=== PATIENT | female | born 1955 | race Caucasian/White ===

== ENCOUNTER → 2018-05-21 | Outpatient (CLI) | payer MEDICARE, BC ==
--- NOTE | 2018-05-21 14:22 | SFUN ---
SLEEP CENTER FOLLOW UP NOTE DATE OF SERVICE: 05/21/2017 A 63-year-old lady who has been followed in the Sleep Center for treatment of obstructive sleep apnea-hypopnea syndrome and narcolepsy. Patient successfully continued to use her BiPAP equipment every night for the whole night. BiPAP pressure is 11/7 cm of water. No snoring with the machine. Patient takes 300 mg of Provigil in the morning, but still has episodes of sleepiness during the day. Has to drink additionally some caffeinated beverages to reduce sleepiness before driving. [place] Sleepiness Scale today is 15. MEDICATIONS: Acyclovir, aspirin, , Centrum, Creon, Lomotil, Lopressor, , Myrbetriq, probiotic, Prilosec, Procardia XL, Prolia, Singulair, Topamax. PHYSICAL EXAM: Patient in no distress, BP 116/77, HR 50, RR 16, height 63, weight 154.6, which is the same as during the previous visit. Body mass index 27.2, temperature 98.6, oxygen saturation at room air 98%. OROPHARYNX: Mallampati 3. Neck Supple, no JVD. Thyroid is not palpable. LUNGS Clear to percussion and to auscultation. Good air exchange. No wheezing or rhonchi. HEART S1, S2 regular. No murmurs, gallops, or rubs. ABDOMEN Soft and nontender. Bowel sounds are present. No organomegaly appreciated. EXTREMITIES No clubbing or cyanosis. SUSTAINMENT LOGISTICS ANALYST Awake, alert, and oriented X3. Cranial nerves 2 to 7 intact. There is no fasciculation or atrophy. noted. No focal deficits observed. IMPRESSION: 1. Obstructive sleep apnea-hypopnea syndrome. Patient continued to use her BiPAP equipment benefitting from treatment. 2. Narcolepsy. 3. History of migraines. 4. History of supraventricular tachycardia. 5. History of psoriasis and psoriatic arthritis. 6. Asthma. 7. History of trochanteric bursitis. 8. Status post left hip total replacement. 9. History of peripheral neuropathy. 10.Status post surgical treatment of carpal tunnel syndrome. 11.Status post cervical fusion and diskectomy at the level of C5-C6. 12.Status post hemorrhoidectomy. 13.Status post adenoidectomy and septoplasty. 14.Status post tonsillectomy and myringotomy. 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 PLAN: 1. Patient will continue to use Provigil every morning. We will increase dose to 400 mg. 2. Patient will continue to use BiPAP equipment every night for the whole night. Will maintain all necessary BiPAP prescription. 3. Precautions related to driving. No driving if feeling sleepiness. 4. Daytime naps permitted. 5. Followup visit in 3 months to evaluate the clinical response of treatment with increased dose of Provigil and to check BiPAP unit. Thank you very much for allowing me to participate in the management of your patient. Sincerely, Aneesh Artis MD, PhD, FAASM Diplomat of [employer] Lay Out Inspector of [facility] [place] MMODL / IJN: [id number] /
== END | disposition home or self-care (01) ==
LOC: SLEEP 13:26
PROVIDERS: ATTEND Internal Medicine
DX: G47.33 Obstructive sleep apnea (adult) (pediatric) (principal); G47.419 Narcolepsy without cataplexy; G43.909 Migraine, unspecified, not intractable, without status migrainosus; I47.1 Supraventricular tachycardia; J45.909 Unspecified asthma, uncomplicated; L40.9 Psoriasis, unspecified; L40.50 Arthropathic psoriasis, unspecified; G62.9 Polyneuropathy, unspecified; Z96.642 Presence of left artificial hip joint; Z98.890 Other specified postprocedural states; Z98.1 Arthrodesis status; Z96.22 Myringotomy tube(s) status; Z99.89 Dependence on other enabling machines and devices; Z79.899 Other long term (current) drug therapy; Z79.82 Long term (current) use of aspirin

== ENCOUNTER → 2018-08-14 | Outpatient (CLI) | payer MEDICARE, BC ==
--- NOTE | 2018-08-14 12:27 | SFUN ---
SLEEP CENTER FOLLOW UP NOTE DATE OF SERVICE: 08/14/2018 This 63-year-old lady has been followed in sleep center for treatment of obstructive sleep apnea-hypopnea syndrome and possible narcolepsy. Patient continued to use his CPAP equipment every night for the whole night and sleep well with that. There is no snoring. She is on treatment with modafinil in the morning, 400 mg. With this regimen, her daytime alertness, mostly on control. Sometimes in the evening hours, she may feel sleepy while she is in the . Otherwise, no problems. I checked her BiPAP unit. Pressure is 11/7 cm of water. Usage is every night for more than 4 hours. Average usage 8.0 hours. Leak 5 L/minute which is normal range. Apnea- hypopnea index only 1.8, which is absolutely normal. [place] Sleepiness Scale today is 13. MEDICATIONS: Acyclovir, aspirin, Centrum, Lomotil, Lopressor, , Prilosec, Procardia XL, Prolia, Singulair, Topamax, and Provigil. PHYSICAL EXAMINATION: During physical exam, patient in no distress. VITAL SIGNS: BP 98/64, HR 62, RR 14, height 5 feet 3 inches, weight 157.4, body mass index 27.8, temperature 99.8, oxygen saturation at room air 95%. HEENT: PERRLA, EOMI. Oropharynx low position of soft palate. Mallampati 3. NECK: Supple, no JVD. Thyroid is not palpable. LUNGS: Clear to percussion and to auscultation. Good air exchange. No wheezing or rhonchi. HEART: S1, S2 regular. No murmurs, gallops, or rubs. ABDOMEN: Soft and nontender. Bowel sounds are present. No organomegaly appreciated. EXTREMITIES: No clubbing or cyanosis. PEARL GLUE DRIER: Awake, alert, and oriented X3. Cranial nerves 2 to 7 intact. There is no fasciculation or atrophy. noted. No focal deficits observed. IMPRESSION: 1. Obstructive sleep apnea-hypopnea syndrome. Patient demonstrated 100% compliance with treatment benefitting from treatment. 2. Narcolepsy. 3. History of migraines. 4. History of supraventricular tachycardia. 5. History of psoriasis and psoriatic arthritis. 6. Asthma. 7. History of trochanteric bursitis. 8. Status post left hip total replacement. 9. History of peripheral neuropathy. 10.Status post surgical treatment of carpal tunnel syndrome. 11.Status post cervical fusion and diskectomy at the level of C5-C6. 12.Status post hemorrhoidectomy. 13.Status post adenoidectomy and septoplasty. 14.Status post tonsillectomy and myringotomy. 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 PLAN: 1. The patient will continue to use BiPAP equipment every night for the whole night with the same regimen. 2. Prescription for all necessary BiPAP supplies including mask, tube, filters. 3. Patient will continue to take Provigil 400 mg in the morning. 4. Daytime naps permitted. 5. Precautions related to driving. No driving if feeling any sleepiness. Thank you very much for allowing me to participate in management of your patient. Sincerely, Aneesh Artis MD, PhD, FAASM Diplomat of [employer] Leg Man of [facility] [place] MMODL / IJN: [id number] /
== END | disposition home or self-care (01) ==
LOC: SLEEP 11:00
PROVIDERS: ATTEND Internal Medicine
DX: G47.33 Obstructive sleep apnea (adult) (pediatric) (principal); G47.419 Narcolepsy without cataplexy; J45.909 Unspecified asthma, uncomplicated; Z86.79 Personal history of other diseases of the circulatory system; Z86.69 Personal history of other diseases of the nervous system and sense organs; Z87.2 Personal history of diseases of the skin and subcutaneous tissue; Z87.39 Personal history of other diseases of the musculoskeletal system and connective tissue; Z87.19 Personal history of other diseases of the digestive system; Z99.89 Dependence on other enabling machines and devices; Z96.642 Presence of left artificial hip joint; Z98.1 Arthrodesis status; Z90.09 Acquired absence of other part of head and neck; Z98.890 Other specified postprocedural states; Z79.899 Other long term (current) drug therapy

== ENCOUNTER 2019-02-10 06:11 | Day surgery (SDC) | payer MEDICARE, BC ==
[2019-02-05 13:21] VITALS: BMI 26.5
[~2019-02-10 06:11] MED LIST: SODIUM CHLORIDE 0.9% 1,000 ML IV SCH
[2019-02-10 06:46] VITALS: RESP 16
[2019-02-10] MEDS ORDERED: SODIUM CHLORIDE 0.9% 1,000 ML IV ONE ×2 (06:48→10:19)
[2019-02-10] MEDS ORDERED: SUCCINYLCHOLINE CHLORIDE 100 MG/5 ML SYR IV ONE (07:23)
[2019-02-10] MEDS ORDERED: fentaNYL (PF) 50 MCG/ML 2 ML AMP ONE (07:23)
[2019-02-10] MEDS ORDERED: MIDAZOLAM 2 MG/2 ML VIAL ONE (07:23)
[2019-02-10] MEDS ORDERED: PROPOFOL 10 MG/ML 20 ML VIAL IV ONE (07:23)
[2019-02-10] MEDS ORDERED: ONDANSETRON 4 MG/2 ML VIAL ONE (07:23)
[2019-02-10] MEDS ORDERED: ISOPROTERENOL 250 MCG/1.25 ML SYR IV ONE (07:23)
[2019-02-10] MEDS ORDERED: LIDOCAINE 1% INJ 10MG/ML (20 ML MDV) SQ ONE (08:00)
[2019-02-10] MEDS ORDERED: HYDROcodone/APAP 5-325MG 1 EACH TAB PO PRN (10:12)
[2019-02-10] MEDS ORDERED: ACETAMINOPHEN TAB 325 MG TAB PO PRN (10:12)
[2019-02-10] MEDS ORDERED: ACETAMINOPHEN IV (For NPO) 1,000 MG in EMPTY BAG 1 BAG IVPB ONE (10:12)
[2019-02-10] MEDS ORDERED: PREDNISOLONE ACETATE BOTH EYES SCH (10:15)
--- NOTE | 2019-02-10 10:33 | P.PRLE ---
RE: Lilly Blandon Dear Lamont Carr underwent a diagnostic EP study which revealed an atrial tachycardia. This was inconsistently induced on high-dose Isuprel and would spontaneously ter minate. I would treat her medically at this point with low-dose flecainide and once she starts experiencing breakthrough episodes on flecainide and metoprolol him a the episodes would definitely be longer and more amenable to mapping. I will start him on flecainide 50 g twice daily and she will continue metoprolol succinate 25 mg by mouth daily Thank you for entrusting me with the care of the patient Warm regards Sincerely Jonathon Lynn
[2019-02-10 10:55] VITALS: TEMP 96.8
--- NOTE | 2019-02-10 11:16 | CE ---
CARDIAC ELECTROPHYSIOLOGY REPORT Lilly Blandon is a 63-year-old female who has recurrent palpitations despite metoprolol 25 mg p.o. daily. She was brought in for diagnostic EP study and possible radiofrequency ablation. Patient is brought to the EP lab in a fasting state and written informed consent was obtained prior to the procedure. The right groin was prepped and draped as per protocol. Three venous sheaths were placed in the right femoral vein. Via these, three diagnostic catheters were positioned in the right heart (high right atrial catheter, His bundle catheter, RV catheter). The baseline measurements are as follows: Sinus cycle length 1138 milliseconds, AK interval 178 milliseconds, QRS 95 milliseconds and QT 435 milliseconds. Baseline AH interval 58 milliseconds, baseline HV interval 50 milliseconds. Sinus node recovery times at 600, 500 and 400 milliseconds were 1450, 1284, and 1156 milliseconds. The corresponding corrected sinus node recovery times were mildly prolonged at a paced cycle length of 600 milliseconds, more than 500. AV node Wenckebach block in the baseline state is 440 milliseconds, VA Wenckebach block was 360 milliseconds. Atrial extra stimulation was performed and echo beats were consistently noted from 600/380 milliseconds down to 600/340 milliseconds and AV node ERP was achieved. Ventricular extra stimulation was performed and once again a retrograde jump in the AH interval was noted at 600/360 milliseconds. Ventricular ERP was noted at 600/280 milliseconds. In the baseline state, no sustained arrhythmia was induced. Only single echo beats and one double echo beat was noted. Isuprel was then started wide open and then at 2 mcg. Atrial tachycardia was induced with straight pacing at a paced cycle length of 310 milliseconds. The atrial tachycardia cycle length was 361 milliseconds. The earliest activation was noted in the high right atrium, which is slightly earlier than the proximal His. The HRA pole was in the lower half of the right atrium. The tachycardia terminated abruptly with coronary sinus massage ending with the ventricular signal. Later, the tachycardia terminated spontaneously on two occasions with the last electrogram with a ventricular signal. Pacing leads in the atrial tachycardia. The tachycardia was inconsistently inducible with burst stimulation at a pacing from the high right atrium at a paced cycle length of around 350 milliseconds. At this point, the patient was quite restless on the table and would repeatedly move her legs and try to get off the table therefore, we made a decision to perform the rest of the diagnostic EP study and possible mapping and ablation under general anesthesia. After intubation, straight pacing was performed in the high right atrium and atrial fibrillation (rapid atrial tachycardia at a cycle length of 215 to 15 milliseconds was induced.) She had to be electrically cardioverted to sinus rhythm. Following that, high-dose Isuprel was used and atrial tachycardia was very inconsistently induced occasionally with burst stimulation from the high right atrium. The tachycardia cycle length once again was 360 milliseconds. Given the difficulty in inducing the tachycardia consistently and the fact that the tachycardia would not be long-lasting and would terminate spontaneously, ending in a ventricular signal, we made a decision to treat her medically at this point and bring her back for an EP study and mapping ablation only when she became refractory to flecainide. Hopefully at that time, her tachycardia would be more sustained at that time and more amenable to mapping. This is a focal atrial tachycardia, most likely in the right atrium. RESULT: 1. Diagnostic EP study revealed normal baseline measurements, normal AH and HV intervals. Very mildly prolonged sinus node recovery times at a paced cycle length of 600 milliseconds. 2. No evidence for delta waves but evidence of echo beats. Up to triple echo beats were noted on the high-dose Isuprel, but no further sustained AVNRT. 3. The clinical tachycardia appears to be right atrial tachycardia, likely focal in nature given the fact that it abruptly terminated with carotid sinus massage. This was a long RP tachycardia with the VA time of almost 180 milliseconds. This tachycardia is inconsistently induced on Isuprel only with straight pacing and burst stimulation around a pacing cycle length of between 300-350 milliseconds. 4. With shorter cycle lengths, organized atrial fibrillation was induced. PLAN: Medical treatment with flecainide and mapping ablation to be performed once she starts having breakthrough episodes on flecainide. MMODL / IJN: [id number] /
--- NOTE | 2019-02-10 11:30 | P.HPCAR ---
History of Present Illness This is Dr. Lynn dictating an H&P on this patient The patient was interviewed and examined by me IMPRESSION / ASSESSMENT: Recurrent palpitations despite metoprolol associated with dizziness and lightheadedness but no syncope Normal stress test Preserved LV systolic function ejection fraction 60% Obstructive sleep apnea using a BiPAP mask No contraindications to proceeding with EP study and ablation under conscious sedation or general anesthesia PLAN: Proceed with EP study and possible ablation based upon the results of EP study HPI Patient has had recurrent palpitations and is experiencing breakthrough episodes on metoprolol. Were associated with dizziness but no loss of consciousness She also complaining of shortness of breath on exertion No chest discomfort no loss of consciousness recently No fever chills or rigors no cough or expectoration orthopnea PND recently ROS: No fever chills or rigors, no cough, phlegm or expectoration, no nausea, vomiting or diarrhea, no hematuria, dysuria, no musculoskeletal complaints, no strokes or seizures, no skin lesions. EXAMINATION: Afebrile 96.8F, pulse rate in the 60s and 70s, normal respirations, blood pressure 124/78 mmHg Breath sounds are clear no rhonchi no crackles Normal heart sounds no murmurs or gallops or rub Soft abdomen, nontender no masses Extremities are normal no edema REVIEW OF LABS, ECG & MEDICAL DATA History of narcolepsy, obstructive sleep apnea, sporadic arthritis Physical Exam Vitals: Vital Signs Temp Pulse Resp BP BP Pulse Ox 02/10/19 11:13 75 16 118/77 96 02/10/19 10:57 69 16 114/77 95 02/10/19 10:42 96.8 F L 83 16 124/78 93 L 02/10/19 06:44 98.6 F 70 16 158/78 95 Intake and Output 02/09/19 02/10/19 02/10/19 22:59 06:59 14:59 Intake Total 50 1125 Balance 50 1125 Intake: IV 50 1125 Other: Weight 78.1 kg Past Medical History Past Medical History: Asthma, Skin Disorder, Sleep Apnea/CPAP/BIPAP Additional Past Medical History / Comment(s): migraines, see Dr Lynn H&P, varicose veins, 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 and pancreatic insufficiency, chronic diarrhea, psoriatic arthritis, psoriasis, autoimmune dermatitis, urinary incontinence, narcolepsy History of Any Multi-Drug Resistant Organisms: None Reported Past Surgical History: Breast Surgery, Ear Surgery, Joint Replacement, Orthopedic Surgery, Tonsillectomy Additional Past Surgical History / Comment(s): cervical fusion x 2, left hip replacement, myringotomy, septoplasty, carpal tunnel jonny, bunionectomy-rt, left breast reduction, rt breast augmentation Past Anesthesia/Blood Transfusion Reactions: No Reported Reaction Smoking Status: Former smoker - Past Family History Sister(s) Family Medical History: Deep Vein Thrombosis (DVT) Physical Examination Vital Signs Temp Pulse Resp BP BP Pulse Ox 02/10/19 11:13 75 16 118/77 96 02/10/19 10:57 69 16 114/77 95 02/10/19 10:42 96.8 F L 83 16 124/78 93 L 02/10/19 06:44 98.6 F 70 16 158/78 95 Intake and Output 02/09/19 02/10/19 02/10/19 22:59 06:59 14:59 Intake Total 50 1125 Balance 50 1125 Intake: IV 50 1125 Other: Weight 78.1 kg Results Current Medications Generic Name Dose Route Start Last Admin Trade Name Freq PRN Reason Stop Dose Admin Acetaminophen 650 mg 02/10/19 10:12 Tylenol Tab PO Q6HR PRN Mild Pain Hydrocodone Bitart/Acetaminophen 1 each 02/10/19 10:12 [place] 5-325 PO Q4HR PRN Moderate Pain Acyclovir 400 mg 02/10/19 21:00 Zovirax PO BID ADRIANNA Aspirin 81 mg 02/11/19 09:00 Aspirin PO DAILY [facility] Flecainide Acetate 50 mg 02/10/19 21:00 Tambocor PO Q12HR [facility] Sodium Chloride 1,000 mls @ 50 mls/hr 02/10/19 06:06 Saline 0.9% IV .Q20H ADRIANNA Metoprolol Succinate 25 mg 02/10/19 21:00 Toprol Xl PO HS [facility] Montelukast Sodium 10 mg 02/10/19 21:00 Singulair PO HS [facility] Non-Formulary Medication 1 drop 02/10/19 10:15 Prednisolone Acetate/Pf [Prednisolone Acet 1% Eye Drop] BOTH EYES DIRECTED ADRIANNA Mirabegron [ 50 mg 02/10/19 21:00 Myrbetriq] PO HS [facility] Oxybutynin Chloride 2.5 mg 02/10/19 21:00 Ditropan PO BID ADRIANNA Pantoprazole Sodium 40 mg 02/11/19 07:30 Protonix PO AC-BRKFST ADRIANNA Sodium Chloride 12 ml 02/10/19 21:00 Saline Flush IV Q12HR [facility]ANNA Sulfasalazine 1,000 mg 02/10/19 21:00 Azulfidine PO 05/20/19 21:01 BID ADRIANNA Topiramate 50 mg 02/10/19 21:00 Topamax PO BID ADRIANNA Intake and Output 02/09/19 02/10/19 02/10/19 22:59 06:59 14:59 Intake Total 50 1125 Balance 50 1125 Intake: IV 50 1125 Other: Weight 78.1 kg
[2019-02-10] MEDS ORDERED: FLECAINIDE 50 MG TAB PO STA (13:21)
[2019-02-10 16:35] VITALS: BP 113/74; PULSE 66
[2019-02-10] MEDS ORDERED: FLECAINIDE 50 MG TAB PO SCH ×2 (18:00→21:00)
[2019-02-10] MEDS ORDERED: TOPIRAMATE 25 MG TAB PO SCH (21:00)
[2019-02-10] MEDS ORDERED: MONTELUKAST 10 MG TAB PO SCH (21:00)
[2019-02-10] MEDS ORDERED: sulfaSALAzine 500 MG TAB PO SCH (21:00)
[2019-02-10] MEDS ORDERED: METOPROLOL SUCCINATE (ER) 25 MG TAB.ER.24H PO SCH (21:00)
[2019-02-10] MEDS ORDERED: ACYCLOVIR 200 MG CAP PO SCH (21:00)
[2019-02-10] MEDS ORDERED: OXYBUTYNIN CHLORIDE 5 MG TAB PO SCH (21:00)
[2019-02-10] MEDS ORDERED: Mirabegron [Myrbetriq] PO SCH (21:00)
[2019-02-11] MEDS ORDERED: PANTOPRAZOLE 40 MG TABLET PO SCH (07:30)
[2019-02-11] MEDS ORDERED: ASPIRIN 81 MG PO SCH (09:00)
== END 2019-02-10 17:43 | disposition home or self-care (01) ==
LOC: CATHEP 06:11 → 1SOBS 10:17 → 2ORMAIN 13:26 → CATHEP 17:43
PROVIDERS: ATTEND Internal Medicine Clinical Cardiac Electrophysiology
DX: I47.1 Supraventricular tachycardia (principal); I34.0 Nonrheumatic mitral (valve) insufficiency; K21.9 Gastro-esophageal reflux disease without esophagitis; G43.909 Migraine, unspecified, not intractable, without status migrainosus; G47.33 Obstructive sleep apnea (adult) (pediatric); Z87.891 Personal history of nicotine dependence; Z99.89 Dependence on other enabling machines and devices; J45.909 Unspecified asthma, uncomplicated; I83.90 Asymptomatic varicose veins of unspecified lower extremity; L40.50 Arthropathic psoriasis, unspecified; L40.9 Psoriasis, unspecified; K25.9 Gastric ulcer, unspecified as acute or chronic, without hemorrhage or perforation; K85.90 Acute pancreatitis without necrosis or infection, unspecified; K86.89 Other specified diseases of pancreas; K52.9 Noninfective gastroenteritis and colitis, unspecified; L30.8 Other specified dermatitis; R32 Unspecified urinary incontinence; G47.419 Narcolepsy without cataplexy; Z96.642 Presence of left artificial hip joint; Z98.1 Arthrodesis status; Z84.89 Family history of other specified conditions; Z79.82 Long term (current) use of aspirin; Z79.899 Other long term (current) drug therapy
CPT/HCPCS: 92960; 93623; 93620; C1894; C1769 ×2; C1730; J2250; J2405; J2001; J3010; J0330; J2704

== ENCOUNTER → 2019-02-26 | Outpatient (CLI) | payer MEDICARE, BC ==
--- NOTE | 2019-02-26 12:46 | PN ---
PROGRESS NOTE DATE OF SERVICE: 02/26/2019 A 63-year-old lady who has been followed in the Sleep Center for treatment of obstructive sleep apnea-hypopnea syndrome and narcolepsy. The patient continued to use her CPAP equipment every night for the whole night without significant problems related to mask fitting, pressure and humidification. I checked her CPAP unit. Usage is 30/30 nights for more than 4 hours with average usage is 7.9 hours per night. Pressure is 11/7 cm of water BiPAP, leak only 6 L/minute, which is absolutely normal. Apnea-hypopnea index only 3.7, which is perfect. Patient is on treatment with Provigil 400 mg in the morning. With this regimen [place] Sleepiness Scale today is 7, which is normal range. MEDICATIONS: Acyclovir, Aleve, aspirin, sulfadine, Centrum Silver, Claritin, Creon, Ditropan, , Fioricet, , Flonase nasal spray, hydrocortisone cream, Lomotil, Maxalt, Myrbetriq, , prednisone eyedrops, Prilosec, probiotic, Procardia, Prolia, Provigil 400 mg q.a.m., Singulair, Topamax, Toprol-XL, Voltaren. PHYSICAL EXAM: Patient in no distress. BP 143/80, HR 52, RR 16, height 5 and 3, weight 160, body mass index 28.3, temperature 97.5, oxygen saturation at room air 98%. OROPHARYNX: Low position of soft palate. Mallampati 3. Neck Supple, no JVD. Thyroid is not palpable. LUNGS Clear to percussion and to auscultation. Good air exchange. No wheezing or rhonchi. HEART S1, S2 regular. No murmurs, gallops, or rubs. ABDOMEN Soft and nontender. Bowel sounds are present. No organomegaly appreciated. EXTREMITIES No clubbing or cyanosis. ENTERPRISE ANALYST Awake, alert, and oriented X3. Cranial nerves 2 to 7 intact. There is no fasciculation or atrophy. noted. No focal deficits observed. IMPRESSION: 1. Obstructive sleep apnea-hypopnea syndrome. Patient demonstrated 100% compliance with treatment benefitting from treatment. 2. Narcolepsy. 3. History of supraventricular tachycardia. No recent episodes. 4. History of migraines. 5. History of psoriasis and psoriatic arthritis. 6. Asthma. 7. History of trochanteric bursitis. 8. Status post left hip total replacement. 9. History of peripheral neuropathy. 10.Status post surgical treatment for carpal tunnel syndrome. 11.Status post cervical fusion and diskectomy in the level of C5-C6. 12.Status post hemorrhoidectomy. 13.Status post adenoidectomy and septoplasty. 14.Status post tonsillectomy and . 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 PLAN: 1. Patient will continue treatment with BiPAP every night for the whole night with the same regimen of pressure. 2. I will maintain all necessary prescriptions for supplies including mask, tube, filters. 3. Patient will continue to take modafinil 400 mg in the morning. With this regimen, she does not feel sleepy during the day and feels well. No real clinical side effects. 4. Precautions related to driving. No driving if feeling any sleepiness. 5. Daytime naps permitted. Thank you very much for allowing me to participate in the management of your patient. Sincerely, Aneesh Artis MD, PhD, FAASM Diplomat of [place] [employer] [place] [employer] Wharf Helper of [facility] [place] MMODL / IJN: [id number] /
== END | disposition home or self-care (01) ==
LOC: SLEEP 11:38
PROVIDERS: ATTEND Internal Medicine
DX: G47.33 Obstructive sleep apnea (adult) (pediatric) (principal); G47.419 Narcolepsy without cataplexy; J45.909 Unspecified asthma, uncomplicated; Z96.642 Presence of left artificial hip joint; Z86.69 Personal history of other diseases of the nervous system and sense organs; Z87.19 Personal history of other diseases of the digestive system; Z87.2 Personal history of diseases of the skin and subcutaneous tissue; Z87.39 Personal history of other diseases of the musculoskeletal system and connective tissue; Z99.89 Dependence on other enabling machines and devices; Z79.82 Long term (current) use of aspirin; Z79.899 Other long term (current) drug therapy; Z79.891 Long term (current) use of opiate analgesic

== ENCOUNTER → 2020-03-31 | Outpatient (CLI) | payer MEDICARE, BC ==
--- NOTE | 2020-03-31 20:05 | SFUN ---
SLEEP CENTER FOLLOW UP NOTE DATE OF SERVICE: 03/31/2020 This patient is a 65-year-old lady who has been followed in Sleep Center for treatment of narcolepsy and obstructive sleep apnea-hypopnea syndrome. The patient continues to use her modafinil 400 mg in the morning for narcolepsy and she is using her BiPAP equipment every night for treatment of obstructive sleep apnea-hypopnea syndrome. She sleeps well. Very rare episodes of supraventricular tachycardia, usually in the evening hours before she has taken her second dose of metoprolol. [place] Sleepiness Scale today is 12. I checked her BiPAP unit. Pressure is 11/7 cm of water. Usage is 100% of the nights with average usage 7.3 hours per night. Leak is only 5 L/minute. Apnea-hypopnea index is 3.2, which is normal. MEDICATIONS: 1. Acyclovir 400 mg twice a day. 2. Aspirin 81 mg once a day. 3. Claritin 10 mg once a day. 4. Creon 24,000 units with meals for pancreatic insufficiency. 5. Ditropan 5 mg twice a day. 6. Emgality 120 mg. 7. Flecainide 50 mg twice a day. 8. Flonase. 9. Maxalt 10 mg up to 2 times a day maximal, 2 days per week. 10.Myrbetriq 50 mg once a day. 11.Otezla 30 mg twice a day. 12.Prilosec 20 mg once a day. 13.Procardia XL 30 mg once a day. 14.Prolia 60 mg q.6 months. 15.Montelukast 10 mg once a day. 16.Topamax 50 mg twice a day. 17.Toprol-XL 25 mg twice a day. PHYSICAL EXAMINATION: GENERAL: A pleasant patient in no distress. VITAL SIGNS: BP 122/74, HR 46, RR 14, height 5 feet 2 inches, weight 160.6, temperature 97.8, oxygen saturation at room air 99%. BMI 25.0. HEENT: PERRLA, EOMI. Evaluation of oropharynx showed tongue protrudes midline. Low position of soft palate. Mallampati III. NECK: Supple. No JVD. Thyroid is not palpable. LUNGS: Clear to percussion and to auscultation. Good air exchange. No wheezing or rhonchi. HEART: S1, S2 regular. No murmurs, gallops or rubs. ABDOMEN: Soft, nontender. No organomegaly. Bowel sounds are heard in all four quadrants. EXTREMITIES: No clubbing or cyanosis. RUBBER MILL TENDER: Awake, alert, and oriented X3. Cranial nerves 2 to 7 intact. There is no fasciculation or atrophy. noted. No focal deficits observed. IMPRESSION: 1. Obstructive sleep apnea-hypopnea syndrome. Patient demonstrated 100% compliance with treatment, benefitting from treatment. 2. Narcolepsy, type 2, controlled with modafinil. 3. History of supraventricular tachycardia with very rare repeating episodes. The patient usually stops them with beta jesse. 4. History of migraine. 5. History of psoriasis and psoriatic arthritis. 6. Asthma. 7. History of trochanteric bursitis. 8. Status post left hip total replacement. 9. History of peripheral neuropathy. 10.Status post surgical treatment for carpal tunnel syndrome. 11.Status post cervical fusion and discectomy at level C5-C6. 12.Status post hemorrhoidectomy. 13.Status post adenoidectomy and septoplasty. 14.Status post tonsillectomy. 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 PLAN: 1. Patient will continue to use PAP equipment every night for the whole night. 2. Sleep hygiene with regular time in bed for at least 7-1/2 to 8 hours. 3. Precautions related to driving. No driving if feeling sleepiness. 4. I will maintain all necessary prescription for PAP supplies including mask, tube, filters. 5. Watching weight. 6. No driving if feeling sleepiness. 7. Follow-up visit in 6 months or earlier if patient has any problems. 8. The patient will continue to take modafinil 400 mg in the morning. 9. Daytime naps permitted. Thank you very much for allowing me to participate in the management of your patient. Sincerely, Aneesh Artis MD, PhD, FAASM Diplomat of [employer] [employer] Technician of [facility] [place] [email or web address] / ELIU: [id number] /
== END | disposition home or self-care (01) ==
LOC: SLEEP 11:54
PROVIDERS: ATTEND Internal Medicine
DX: G47.33 Obstructive sleep apnea (adult) (pediatric) (principal); G47.419 Narcolepsy without cataplexy; Z86.79 Personal history of other diseases of the circulatory system; Z86.69 Personal history of other diseases of the nervous system and sense organs; Z98.1 Arthrodesis status; Z86.19 Personal history of other infectious and parasitic diseases; Z99.89 Dependence on other enabling machines and devices; Z79.82 Long term (current) use of aspirin; Z79.899 Other long term (current) drug therapy

== ENCOUNTER → 2021-01-25 | Outpatient (CLI) | payer MEDICARE, BC ==
--- NOTE | 2021-01-25 21:37 | SFUN ---
SLEEP CENTER FOLLOW UP NOTE DATE OF SERVICE: 01/25/2021 65-year-old lady has been followed in Sleep Center for treatment of obstructive sleep apnea-hypopnea syndrome and narcolepsy. The patient continues to use her BiPAP equipment every night for the whole night. No snoring with the machine. She is getting all her supplies in time. She continues to take her modafinil 400 mg in the morning, needs to have a new prescription. I checked her BiPAP unit, pressure 11/7 cm of water, usage 30/30 nights for more than 4 hours, average 7.3 hours per night. Leak is 17 L/minute which is borderline. Apnea- hypopnea index is 2.2 which is normal. [place] Sleepiness Scale today is 12. MEDICATIONS: 400 mg twice a day, aspirin 81 mg once a day, Claritin 10 mg once a day, Creon 24,000 units 3 with meals for pancreatic insufficiency, Ditropan 5 mg, Emgality 120 mg, Fioricet, butalbital, flecainide 50 mg twice a day, Flonase nasal spray, Lomotil, Atropine 2.5-0.025 mg, 10 mg, Myrbetriq 50 mg, Otezla 30 mg, Plaquenil 200 mg twice a day, Prilosec 20 mg once a day, Procardia XL 30 mg once a day, Prolia q 6 months, Provigil 400 mg once a day in the morning, Singulair 10 mg once a day, Topamax 50 mg twice a day, Toprol-XL 25 mg once a day, Voltaren 2 g once a day. PHYSICAL EXAMINATION: GENERAL: Patient in no distress. BP 127/81, HR 52, RR 15, height 5 feet 3 inches, weight 147, body mass index 26.0, temperature 98.2, oxygen saturation at room air 99%. Oropharynx is low position of soft palate, Mallampati 3. NECK: Supple, no JVD. Thyroid is not palpable. LUNGS: Clear to percussion and to auscultation. Good air exchange. No wheezing or rhonchi. HEART: S1, S2 regular. No murmurs, gallops, or rubs. ABDOMEN: Soft and nontender. Bowel sounds are present. No organomegaly appreciated. EXTREMITIES: No clubbing or cyanosis. BARMAN: Awake, alert, and oriented X3. Cranial nerves 2 to 7 intact. There is no fasciculation or atrophy. noted. No focal deficits observed. IMPRESSION: 1. Obstructive sleep apnea-hypopnea syndrome patient demonstrated 100% compliance with treatment benefitting from treatment normal respiration on CPAP. 2. Narcolepsy type 2. Alertness on control with modafinil. 3. History of supraventricular tachycardia. 4. History of migraine. 5. History of psoriasis and psoriatic arthritis. 6. Asthma. 7. History of allergic rhinitis and pharyngitis. 8. History of pancreatic insufficiency due to chronic hereditary pancreatitis. 9. Urinary incontinence. 10.History of psoriasis. 11.History of syndrome. PLAN: 1. Patient will continue to take modafinil 400 mg in the morning. 2. Patient will continue to use PAP equipment every night for the whole night. 3. Sleep hygiene with regular time in bed for at least 7-1/2 to 8 hours. 4. Precautions related to driving. No driving if feeling sleepiness. 5. I will maintain all necessary prescription for PAP supplies including mask, tube, filters. 6. Watching weight. 7. Follow-up visit in 6 months or earlier if patient has any problems. I spent with the patient in documentation 30 minutes. Thank you very much for allowing me to participate in management of your patient. Sincerely, Aneesh Artis MD, PhD, FAASM Diplomat of [place] [employer] Sleep Medicine Board of [place] [employer] Conduit Mechanic of [facility] [place] MMODL / IJN: [id number] /
== END ==
LOC: SLEEP 16:39
PROVIDERS: ATTEND Internal Medicine
DX: G47.33 Obstructive sleep apnea (adult) (pediatric) (principal); J45.909 Unspecified asthma, uncomplicated; K86.1 Other chronic pancreatitis; R32 Unspecified urinary incontinence; Z99.89 Dependence on other enabling machines and devices; Z86.79 Personal history of other diseases of the circulatory system; Z87.2 Personal history of diseases of the skin and subcutaneous tissue; Z87.39 Personal history of other diseases of the musculoskeletal system and connective tissue; Z87.09 Personal history of other diseases of the respiratory system; Z87.892 Personal history of anaphylaxis; Z79.82 Long term (current) use of aspirin; Z87.891 Personal history of nicotine dependence

== ENCOUNTER → 2021-08-31 | Outpatient (CLI) | payer MEDICARE, BC ==
--- NOTE | 2021-08-31 14:48 | SFUN ---
SLEEP CENTER FOLLOW UP NOTE DATE OF SERVICE: 08/31/2021 This 66-year-old lady has been followed in Sleep Center for treatment of obstructive sleep apnea-hypopnea syndrome. The patient continues to use her BiPAP equipment every night for the whole night and is getting her supplies on time. No snoring. I checked her BiPAP unit. Pressure is 11/7 cm of water. The patient is using it every night for more than 4 hours, average 7.6 hours per night. Leak is zero liters per minute. Apnea-hypopnea index is 2.2, which is normal. [place] Sleepiness Scale today is 9, which is normal. MEDICATIONS: 1. Acyclovir 400 mg twice a day. 2. Aspirin 81 mg once a day. 3. Celebrex 200 mg twice a day. 4. Claritin 10 mg once a day. 5. Creon-pancrelipase 24,000 units three with meals. 6. Ditropan 5 mg twice a day. 7. Fioricet/acetaminophen 1 to 2 tablets up to several times a day. 8. Flecainide 50 mg twice a day. 9. Flonase nasal spray. 10.Lomotil mg twice a day. 11. 25 mg once a day. 12.Myrbetriq 25 mg in the evening. 13.Neurontin 100 mg two tablets at bedtime. 14.Plaquenil 200 mg twice a day. 15.Prevacid 20 mg once a day. 16.Procardia 30 mg once a day. 17.Prolia mg every 6 months. 18.Modafinil 400 mg in the morning. 19.Singulair 10 mg once a day. 20.Topamax mg twice a day. 21.Toprol 25 mg once a day in the evening. PHYSICAL EXAMINATION: GENERAL: Pleasant patient in no distress. VITAL SIGNS: BP 145/84, HR 54, RR 16, height 5 feet 2-2/3 inches, weight 149.6 pounds, temperature 97.2, oxygen saturation at room air 98%. HEENT: PERRLA, EOMI, evaluation of oropharynx showed tongue protrudes midline. Low position of soft palate; Mallampati III. NECK: Supple, no JVD. Thyroid is not palpable. LUNGS: Clear to percussion and to auscultation. Good air exchange. No wheezing or rhonchi. HEART: S1, S2 regular. No murmurs, gallops, or rubs. ABDOMEN: Soft and nontender. Bowel sounds are present. No organomegaly appreciated. EXTREMITIES: No clubbing or cyanosis. FIELD PARTY MANAGER: Awake, alert, and oriented X3. Cranial nerves 2 to 7 intact. There is no fasciculation or atrophy. noted. No focal deficits observed. IMPRESSION: 1. Obstructive sleep apnea-hypopnea syndrome. Patient demonstrated great compliance with treatment, benefitting from treatment. Normal respiration on CPAP. 2. Narcolepsy, type 2. Alertness under control with modafinil. 3. History of supraventricular tachycardia. 4. History of migraine. 5. History of psoriasis and psoriatic arthritis. 6. Asthma. 7. History of allergic rhinitis and pharyngitis. 8. History of pancreatic insufficiency due to chronic hereditary pancreatitis. 9. Urinary incontinence. PLAN: 1. Patient will continue to use PAP equipment every night for the whole night. 2. Sleep hygiene with regular time in bed for at least 7-1/2 to 8 hours. 3. Precautions related to driving. No driving if feeling sleepiness. 4. I will maintain all necessary prescription for PAP supplies including mask, tube, filters. 5. Watching weight. 6. Follow-up visit in 6 months or earlier if patient has any problems. Thank you very much for allowing me to participate in the management of your patient. Sincerely, Aneesh Artis MD, PhD, FAASM Diplomat of [place] [employer] Sleep Medicine Board of [place] [employer] Software Performance Engineer of [facility] [place] MMODL / ISABELN: [id number] /
== END ==
LOC: SLEEP 13:21
PROVIDERS: ATTEND Internal Medicine
DX: G47.33 Obstructive sleep apnea (adult) (pediatric) (principal); Z99.89 Dependence on other enabling machines and devices; G47.419 Narcolepsy without cataplexy; Z86.79 Personal history of other diseases of the circulatory system; G43.909 Migraine, unspecified, not intractable, without status migrainosus; Z87.39 Personal history of other diseases of the musculoskeletal system and connective tissue; J45.909 Unspecified asthma, uncomplicated; Z87.09 Personal history of other diseases of the respiratory system; Z87.19 Personal history of other diseases of the digestive system; R32 Unspecified urinary incontinence; Z87.891 Personal history of nicotine dependence

== ENCOUNTER → 2022-03-14 | Outpatient (CLI) | payer MEDICARE, BC ==
--- NOTE | 2022-03-14 11:57 | P.PN ---
Subjective DATE: 03/14/2022 FOLLOW UP VISIT. Patient with obstructive sleep apnea hypopnea syndrome and narcolepsy 2 return to sleep center for follow-up visit. Information from previous visit have been reviewed. Patient is using BPAP equipment every night for the whole night, getting PAP supplies in time. The patient does not have significant problems with the mask, BPAP unit and humidification. [place] sleepiness scale is/increased to 11. Patient is on modafinil 400 mg in the morning for treatment of narcolepsy. I checked information from BPAP unit. Motor life expectancy is exceeded. BPAP unit pressure 11/7 cm H2O. Usage is 100 % for more then 4 hours, average 7.3 hours per night. Leak is 5 l/m, which is in acceptable range. Apnea Hypopnea Index is 2.4, which is normal. MEDICATIONS:1. Modafinil 400 mg in the morning 2. Zovirax 400 mg twice a day 3. Celebrex 200 mg twice a day 4. Pancrelipase 24,000 units 3 times a day with meal 5. Lopressor 25 mg once a day 6. Procardia 30 mg once a day 7. Prilosec 20 mg once a day 8. Flecainide 50 mg twice a day During physical exam: GENERAL: A pleasant patient without any distress. VITAL SIGNS: BP 154/72, HR 52, RR 16, weight 142, BMI 25.2, temperature 97.6, oxygen saturation at room air 98 % . HEENT: PERRLA, EOMI.low position of soft palate, Mallapati 3 . NECK: Supple. No JVD. LUNGS: Clear to percussion and to auscultation. Good air exchange. No wheezing or rhonchi. HEART: S1, S2 regular. ABDOMEN: Soft and nontender.[] EXTREMITIES: No clubbing or cyanosis. [employer] SCOUT: Awake, alert, and oriented x3. No focal deficit. Impressions: 1. Obstructive sleep apnea-hypopnea syndrome. Patient demonstrated great compliance with treatment, benefiting from treatment. 2. Narcolepsy 2. 3. History of supraventricular tachycardia. 4. Pancreatic insufficiency due to chronic hereditary pancreatitis. 5. History of migraine. 6. Asthma. 7. History of psoriasis and psoriatic arthritis. 8. History autoimmune dermatitis. 9. History of ALLERGIC rhinitis and pharyngitis. 10. Urinary incontinence. 11. Chronic diarrhea secondary to pancreatic insufficiency. 12. History of Raynaud syndrome. Plan: 1. Continue using PAP equipment every night for the whole night. 2. Prescription to replace BiPAP unit, because motor life expectancy was exceeded 3. I will maintain prescription for modafinil 200 mg 2 tablets in the morning. 4. Advised patient to remove all remaining water from humidifier canister daily and make it dry after each usage. Refill canister with fresh distilled water before each usage. 5. Sleep hygiene with regular time in bed for at least 8 hours. 6. Precautions related to driving. No driving if feel any sleepiness. 7. I will maintain prescription for PAP supplies including mask, tube, filters. 8. Follow up visit in 1-2 months after patient will get new BiPAP unit to check compliance with treatment and make any necessary adjustments. 9. Watching weight. Thank you very much for allowing me to participate in the management of your patient. Aneesh Artis MD, PhD, FAASM. Diplomat of [place] [employer], Sleep Medicine Board by [place] [employer] Home Health Care Case Manager of [facility] [place]
== END ==
LOC: SLEEP 11:16
PROVIDERS: ATTEND Internal Medicine
DX: G47.33 Obstructive sleep apnea (adult) (pediatric) (principal); Z99.89 Dependence on other enabling machines and devices; J45.909 Unspecified asthma, uncomplicated; G47.419 Narcolepsy without cataplexy; K86.1 Other chronic pancreatitis; Z86.79 Personal history of other diseases of the circulatory system; Z86.69 Personal history of other diseases of the nervous system and sense organs; Z87.2 Personal history of diseases of the skin and subcutaneous tissue; Z87.39 Personal history of other diseases of the musculoskeletal system and connective tissue; Z86.19 Personal history of other infectious and parasitic diseases; R32 Unspecified urinary incontinence; Z87.09 Personal history of other diseases of the respiratory system; K86.81 Exocrine pancreatic insufficiency; I73.00 Raynaud's syndrome without gangrene; Z87.891 Personal history of nicotine dependence

== ENCOUNTER → 2023-05-27 | Outpatient (CLI) | payer MEDICARE, BC ==
--- NOTE | 2023-05-27 15:34 | P.PN ---
Subjective DATE: 05/27/2023 FOLLOW UP VISIT. Patient with obstructive sleep apnea hypopnea syndrome and narcolepsy type II return to sleep center for follow-up visit. Information from previous visit have been reviewed. Patient is using BPAP equipment every night for the whole night, getting PAP supplies in time. The patient does not have significant problems with the mask, BPAP unit and humidification. [place] sleepiness scale is 8, which is normal. I checked information from PAP unit. BPAP unit pressure 11/7 cm H2O. Usage is 100 % for more then 4 hours, average 8.1 hours per night. Leak is 12 l/m, which is in acceptable range. Apnea Hypopnea Index is 2.9, which is normal. MEDICATIONS:1. Modafinil 400 mg in the morning 2. Aspirin 81 mg once a day 3. Crestor 10 mg once a day 4. Flecainide 50 mg twice a day 5. Flonase 6. Metoprolol 25 mg once a day 7. Gabapentin 100 mg 8. Metoprolol During physical exam: GENERAL: A pleasant patient without any distress. VITAL SIGNS: BP 159/81, HR 46, RR 12 , weight 147.8, temperature 97.8, oxygen saturation at room air 99 % . HEENT: PERRLA, EOMI.low position of soft palate, Mallapati 3 . NECK: Supple. No JVD. LUNGS: Clear to percussion and to auscultation. Good air exchange. No wheezing or rhonchi. HEART: S1, S2 regular. ABDOMEN: Soft and nontender.[] EXTREMITIES: No clubbing or cyanosis. JAVA WEB SERVICES DEVELOPER: Awake, alert, and oriented x3. No focal deficit. Impressions: 1. Obstructive sleep apnea-hypopnea syndrome. Patient demonstrated great compliance with treatment, benefiting from treatment. 2. Narcolepsy type II. 3. History of SVT. 4. History of chronic hereditary pancreatitis. 5. History of migraine. 6. Asthma. 7. History of psoriasis and psoriatic arthritis. 8. History of ALLERGIC rhinitis and pharyngitis. 9. History of Raynaud syndrome. 10. History of urinary incontinence. 11. History of out of autoimmune dermatitis. Plan: 1. Continue using PAP equipment every night for the whole night. 2. To change air filter at least 1-2 times per month. 3. PAP unit should stay lower then position of the head. 4. Advised patient to remove all remaining water from humidifier canister daily and make it dry after each usage. Refill canister with fresh distilled water before each usage. 5. Sleep hygiene with regular time in bed for at least 8 hours. 6. Precautions related to driving. No driving if feel any sleepiness. 7. I will maintain prescription for PAP supplies including mask, tube, filters. 8. Watching weight. 9. Follow up visit in 6 months or earlier if patient has any problems. Thank you very much for allowing me to participate in the management of your patient. Aneesh Artis MD, PhD, FAASM. Diplomat of [place] [employer], Sleep Medicine Board by [place] [employer] Computer Repair Instructor of [facility] [place]
== END ==
LOC: 3 N SLEEP 14:33
PROVIDERS: ATTEND Internal Medicine
DX: G47.33 Obstructive sleep apnea (adult) (pediatric) (principal); G47.419 Narcolepsy without cataplexy; J45.909 Unspecified asthma, uncomplicated; I73.00 Raynaud's syndrome without gangrene; L40.50 Arthropathic psoriasis, unspecified; G43.909 Migraine, unspecified, not intractable, without status migrainosus; Z86.79 Personal history of other diseases of the circulatory system; Z87.19 Personal history of other diseases of the digestive system; Z87.440 Personal history of urinary (tract) infections; Z87.2 Personal history of diseases of the skin and subcutaneous tissue; Z99.89 Dependence on other enabling machines and devices; Z79.82 Long term (current) use of aspirin; Z79.899 Other long term (current) drug therapy; Z87.891 Personal history of nicotine dependence
CPT/HCPCS: 99212

== ENCOUNTER → 2023-06-28 | Outpatient (CLI) | payer MEDICARE, BC ==
--- NOTE | 2023-06-28 23:03 | CT ---
EXAMINATION TYPE: CT sinus wo con CT DLP: 214 mGycm, Automated exposure control for dose reduction was used. DATE OF EXAM: 06/28/2023 11:47 AM COMPARISON: 07/24/2011. CLINICAL INDICATION:Female, 68 years old with history of J32.0 CHRONIC SINUSITIS; sinusitis TECHNIQUE: Multiple thin axial images were obtained through the paranasal sinuses without the use of IV contrast. Additional coronal and sagittal reformatted images were submitted for evaluation. Contrast used: none Oral contrast used: none FINDINGS: Frontal sinuses: Normally developed mild mucosal thickening bilaterally left greater than right. Fron arturo Recess: Obstructed bilaterally Maxillary Sinuses: Normally developed with layering secretions within the maxillary sinuses bilateral ly. Maxillary Infundibula([facility]): Clear, No Ector cells identified. Ethmoid sinuses: Normally developed and aerated. Ethmoidal notch: Protected and abutting the lateral lamina. Sphenoid sinuses: Normally developed with mild mucosal thickening. There is sellar sphenoid sinus pne umatization without evidence of dehiscence. No dehiscence of carotid canal. No evidence of optic ner ve dehiscence within the sphenoid sinus. No evidence of [place] cells. Sphenoethmoidal recesses: Clear . Nasal septum: Within normal limits.. Nasal Turbinates: Within normal limits. Mastoid air cells & middle ears: The air cells are clear. The middle ears are grossly unremarkable. Modified Soft tissues & Brain: Partially seen without gross abnormality. Globes are intact. Other: Cribriform plate demonstrates symmetric Keros classification type 2 cribriform plate. No evidence of bony dehiscence of skull base. Lamina papyracea is intact without evidence of remote orbital fracture or orbital prolapse into the e thmoid sinus. IMPRESSION: Mild paranasal sinus disease with obstructed bilateral frontonasal recesses. The ostiomeatal units ar e patent. There is mild layering secretions in the maxillary sinuses..
== END | disposition home or self-care (01) ==
LOC: RADCTMAIN 11:12
PROVIDERS: ATTEND Otolaryngology
DX: J34.89 Other specified disorders of nose and nasal sinuses (principal); J32.0 Chronic maxillary sinusitis
CPT/HCPCS: 70486

== ENCOUNTER → 2023-12-04 | Outpatient (CLI) | payer MEDICARE, BC ==
[2023-12-04 11:36] VITALS: BP 147/84; PULSE 64; RESP 16; TEMP 98.5
--- NOTE | 2023-12-04 12:17 | P.PROGSL ---
Subjective DATE: 12/04/2023 FOLLOW UP VISIT. Patient with obstructive sleep apnea hypopnea syndrome return to sleep center for follow-up visit. Information from previous visit have been reviewed. Patient is using PAP equipment every night for the whole night, getting PAP supplies in time. The patient does not have significant problems with the mask, PAP unit and humidification. [place] sleepiness scale is increased to 14. I checked information from PAP unit. BPAP unit pressure 11/7 cm H2O. Usage is 100% for more then 4 hours, average 7.2 hours per night. Leak is 12 l/m, which is in acceptable range. Apnea Hypopnea Index is 3.6, which is normal. MEDICATIONS have been reviewed, please see below. During physical exam: GENERAL: A pleasant patient without any distress. VITAL SIGNS: Please see below, weight is 143 lbs. HEENT: PERRLA, EOMI.low position of soft palate, Mallapati 3 . NECK: Supple. No JVD. LUNGS: Clear to percussion and to auscultation. Good air exchange. No wheezing or rhonchi. HEART: S1, S2 regular. ABDOMEN: Soft and nontender.[] EXTREMITIES: No clubbing or cyanosis. CONSTRUCTION EQUIPMENT OPERATOR: Awake, alert, and oriented x3. No focal deficit. Impressions: 1. Obstructive sleep apnea-hypopnea syndrome. Patient demonstrated great compliance with treatment, benefiting from treatment. 2. Narcolepsy type II. 3. History of SVT. 4. History of migraine. 5. History of chronic hereditary pancreatitis. 6. Asthma. 7. History of psoriasis and psoriatic arthritis. 8. History of allergic rhinitis and pharyngitis. 9. History of Raynaud's syndrome. 10. History of autoimmune dermatitis. 11. History of urinary incontinence. Plan: 1. Continue using PAP equipment every night for the whole night. 2. Sleep hygiene with regular time in bed for at least 7.5-8 hours 3. PAP unit should stay lower then position of the head. 4. Advised patient to remove all remaining water from humidifier canister daily and make it dry after each usage. Refill canister with fresh distilled water before each usage. 5. Watching weight. 6. Precautions related to driving. No driving if feel any sleepiness. 7. I will maintain prescription for PAP supplies including mask, tube, filters. 8. Follow up visit in 6 months or earlier if patient has any problems. Thank you very much for allowing me to participate in the management of your patient. Aneesh Artis MD, PhD, FAASM. Diplomat of [place] [employer], Sleep Medicine Board by [place] [employer] Computer Application Developer of [facility] [place] Objective - Vital Signs Vital Signs: Vital Signs Temp 98.5 F 12/04/23 11:35 Pulse 64 12/04/23 11:35 Resp 16 12/04/23 11:35 BP 147/84 12/04/23 11:35 Pulse Ox 96 12/04/23 11:35 FiO2 Intake & Output 12/03/23 12/04/23 12/04/23 18:59 06:59 18:59 Weight 64.864 kg Home Medications: Home Medications Medication Instructions Recorded Confirmed Type Acyclovir 400 mg PO BID 02/05/19 12/04/23 History Apremilast [Otezla] 30 mg PO BID 02/05/19 02/10/19 History Aspirin [Adult Low Dose Aspirin EC] 81 mg PO DAILY 02/05/19 12/04/23 History Denosumab [Prolia] 60 mg SQ DIRECTED 02/05/19 02/05/19 History Diphenox-Atrop 2.5-0.025 mg 2 tab PO DIRECTED PRN 02/05/19 12/04/23 History [Lomotil] Fluticasone Nasal [place] [Flonase 1 spray EA NOSTRIL HS 02/05/19 12/04/23 History Nasal [place]] Galcanezumab-Gnlm [Emgality 120 mg SQ QMONTH 02/05/19 02/05/19 History Syringe] Hydrocortisone Cream 1 applic TOPICAL BID PRN 02/05/19 02/10/19 History [Hydrocortisone 2.5% Cream] L.acidoph,Paracasei, B.lactis 1 each PO DAILY 02/05/19 02/10/19 History [Probiotic] Lipase/Protease/Amylase [Isaiah Irwin 24,000 units PO DIRECTED 02/05/19 02/10/19 History 24,000 Units Capsule] Loratadine-Pseudoeph 10-240 mg 1 tab PO HS 02/05/19 02/10/19 History [Claritin-D 24 Hour] Metoprolol Succinate (ER) [Toprol 25 mg PO HS 02/05/19 12/04/23 History Xl] Mirabegron [Myrbetriq] 50 mg PO HS 02/05/19 02/10/19 History Montelukast [Singulair] 10 mg PO HS 02/05/19 12/04/23 History Multivit-Min/FA/Lycopen/Lutein 1 each PO DAILY 02/05/19 12/04/23 History [Centrum Silver Tablet] Naproxen Sodium [Aleve] 220 mg PO Q12HR PRN 02/05/19 02/10/19 History Omeprazole [PriLOSEC] 20 mg PO AC-BRKFST 02/05/19 12/04/23 History Prednisolone Acetate/Pf 1 drop BOTH EYES DIRECTED 02/05/19 02/10/19 History [Prednisolone Acet 1% Eye Drop] Rizatriptan Benzoate [Maxalt] 10 mg PO BID PRN 02/05/19 12/04/23 History Topiramate [Topamax] 50 mg PO BID 02/05/19 12/04/23 History Voltaran 1% Gel 1 applicate TOPICAL QID PRN 02/05/19 12/04/23 History modafiniL [Provigil] 400 mg PO DAILY 02/05/19 12/04/23 History oxyBUTYnin chloride [Ditropan] 2.5 mg PO BID 02/05/19 12/04/23 History sulfaSALAzine [Azulfidine] 1,000 mg PO BID 02/05/19 02/10/19 History Flecainide [Tambocor] 50 mg PO Q12HR #180 tablet 02/10/19 12/04/23 Rx Apremilast [Otezla] 30 mg PO BID 12/04/23 12/04/23 History Butalb/APAP/Caff 50-325-40Mg See Rx Instructions .ROUTE 12/04/23 12/04/23 History [Fioricet 50-325-40] .COMPLEX PRN Cholecalciferol (Vitamin D3) 50 mcg PO HS 12/04/23 12/04/23 History [Vitamin D3 (50 Mcg = 2000 Iu)] Denosumab [Prolia] See Rx Instructions .ROUTE .COMPLEX 12/04/23 12/04/23 History Fremanezumab-Vfrm [Ajovy See Rx Instructions .ROUTE .COMPLEX 12/04/23 12/04/23 History Autoinjector] Gabapentin [Neurontin] 100 mg PO DIRECTED 12/04/23 12/04/23 History Hydrocortisone Cream See Rx Instructions .ROUTE .COMPLEX 12/04/23 12/04/23 History [Hydrocortisone 2.5% Cream] Hydroxychloroquine Sulfate 200 mg PO BID 12/04/23 12/04/23 History [Plaquenil] Lipase/Protease/Amylase [Creon Dr 10 mg PO DIRECTED 12/04/23 12/04/23 History 24,000 Unit Capsule] Metoprolol Tartrate [Lopressor] 25 mg PO DIRECTED PRN MDD 25 12/04/23 12/04/23 History NIFEdipine XL [Procardia XL] 60 mg PO DAILY 12/04/23 12/04/23 History Ondansetron [Zofran] 4 mg PO BID 12/04/23 12/04/23 History Rosuvastatin [Crestor] 10 mg PO HS 12/04/23 12/04/23 History Ubidecarenone [Co Q-10] 50 mg PO HS 12/04/23 12/04/23 History traMADol HCl [Ultram] 50 mg PO BID MDD 50 MG 12/04/23 12/04/23 History
== END ==
LOC: 3 N SLEEP 11:28
PROVIDERS: ATTEND Internal Medicine
DX: G47.33 Obstructive sleep apnea (adult) (pediatric) (principal); G47.419 Narcolepsy without cataplexy; J45.909 Unspecified asthma, uncomplicated; Z99.89 Dependence on other enabling machines and devices; Z86.79 Personal history of other diseases of the circulatory system; Z86.69 Personal history of other diseases of the nervous system and sense organs; Z87.19 Personal history of other diseases of the digestive system; Z87.2 Personal history of diseases of the skin and subcutaneous tissue; Z87.09 Personal history of other diseases of the respiratory system; Z87.448 Personal history of other diseases of urinary system; Z79.51 Long term (current) use of inhaled steroids; Z87.891 Personal history of nicotine dependence
CPT/HCPCS: 99212

== ENCOUNTER → 2024-08-06 | Outpatient (CLI) | payer MEDICARE, BC ==
[2024-08-06 11:28] VITALS: BP 137/87; PULSE 69; RESP 16; TEMP 97.9
--- NOTE | 2024-08-06 12:32 | P.PROGSL ---
Subjective DATE: 08/06/2024 FOLLOW UP VISIT. Patient with obstructive sleep apnea hypopnea syndrome and narcolepsy return to sleep center for follow-up visit. Information from previous visit have been reviewed. Patient is using PAP equipment every night for the whole night, getting PAP supplies in time. The patient does not have significant problems with the mask, PAP unit and humidification. [place] sleepiness scale is 5, which is normal. I checked information from PAP unit. BPAP unit pressure 11/7 cm H2O. Usage is 100% for more then 4 hours, average 8.2 hours per night. Leak is 4l/m, which is in perfect range. Apnea Hypopnea Index is 2.8, which is normal. MEDICATIONS have been reviewed, please see below. During physical exam: GENERAL: A pleasant patient without any distress. VITAL SIGNS: Please see below, weight is 150 lbs. HEENT: PERRLA, EOMI.low position of soft palate, Mallapati 3 . NECK: Supple. No JVD. LUNGS: Clear to percussion and to auscultation. Good air exchange. No wheezing or rhonchi. HEART: S1, S2 regular. ABDOMEN: Soft and nontender.[] EXTREMITIES: No clubbing or cyanosis. 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 No focal deficit. Impressions: 1. Obstructive sleep apnea-hypopnea syndrome. Patient demonstrated great compliance with treatment, benefiting from treatment. 2. Narcolepsy type II. 3. History of SVT. 4. History of migraines. 5. History of chronic hereditary pancreatitis. 6. Asthma. 7. History of psoriasis and psoriatic arthritis. 8. History of allergic rhinitis and pharyngitis. 9. History of Raynaud syndrome. 10. History of urinary incontinence. 11. History of autoimmune dermatitis. Plan: 1. Continue using PAP equipment every night for the whole night. 2. Sleep hygiene with regular time in bed for at least 7.5-8 hours 3. PAP unit should stay lower then position of the head. 4. Advised patient to remove all remaining water from humidifier canister daily and make it dry after each usage. Refill canister with fresh distilled water before each usage. 5. Watching weight. 6. Precautions related to driving. No driving if feel any sleepiness. 7. I will maintain prescription for PAP supplies including mask, tube, filters. 8. Follow up visit in 8 months or earlier if patient has any problems. 9. Patient will continue modafinil 400 mg in the morning. Thank you very much for allowing me to participate in the management of your patient. Aneesh Artis MD, PhD, FAASM. Diplomat of [employer], Sleep Medicine Board by [employer] Associate of [facility] [place] Objective - Vital Signs Vital Signs: Vital Signs Temp 97.9 F 08/06/24 11:22 Pulse 69 08/06/24 11:22 Resp 16 08/06/24 11:22 BP 137/87 08/06/24 11:22 Pulse Ox 97 08/06/24 11:22 FiO2 Intake & Output 08/05/24 08/06/24 08/06/24 18:59 06:59 18:59 Weight 68.039 kg Home Medications: Home Medications Medication Instructions Recorded Confirmed Type Acyclovir 400 mg PO BID 02/05/19 12/04/23 History Apremilast [Otezla] 30 mg PO BID 02/05/19 02/10/19 History Aspirin [Adult Low Dose Aspirin EC] 81 mg PO DAILY 02/05/19 12/04/23 History Denosumab [Prolia] 60 mg SQ DIRECTED 02/05/19 02/05/19 History Diphenox-Atrop 2.5-0.025 mg 2 tab PO DIRECTED PRN 02/05/19 12/04/23 History [Lomotil] Fluticasone Nasal [place] [Flonase 1 spray EA NOSTRIL HS 02/05/19 12/04/23 History Nasal [place]] Galcanezumab-Gnlm [Emgality 120 mg SQ QMONTH 02/05/19 02/05/19 History Syringe] Hydrocortisone Cream 1 applic TOPICAL BID PRN 02/05/19 02/10/19 History [Hydrocortisone 2.5% Cream] L.acidoph,Paracasei, B.lactis 1 each PO DAILY 02/05/19 02/10/19 History [Probiotic] Lipase/Protease/Amylase [Isaiah Irwin 24,000 units PO DIRECTED 02/05/19 02/10/19 History 24,000 Units Capsule] Loratadine-Pseudoeph 10-240 mg 1 tab PO HS 02/05/19 02/10/19 History [Claritin-D 24 Hour] Metoprolol Succinate (ER) [Toprol 25 mg PO HS 02/05/19 12/04/23 History Xl] Mirabegron [Myrbetriq] 50 mg PO HS 02/05/19 02/10/19 History Montelukast [Singulair] 10 mg PO HS 02/05/19 12/04/23 History Multivit-Min/FA/Lycopen/Lutein 1 each PO DAILY 02/05/19 12/04/23 History [Centrum Silver Tablet] Naproxen Sodium [Aleve] 220 mg PO Q12HR PRN 02/05/19 02/10/19 History Omeprazole [PriLOSEC] 20 mg PO AC-BRKFST 02/05/19 12/04/23 History Prednisolone Acetate/Pf 1 drop BOTH EYES DIRECTED 02/05/19 02/10/19 History [Prednisolone Acet 1% Eye Drop] Rizatriptan Benzoate [Maxalt] 10 mg PO BID PRN 02/05/19 12/04/23 History Topiramate [Topamax] 50 mg PO BID 02/05/19 12/04/23 History Voltaran 1% Gel 1 applicate TOPICAL QID PRN 02/05/19 12/04/23 History modafiniL [Provigil] 400 mg PO DAILY 02/05/19 12/04/23 History oxyBUTYnin chloride [Ditropan] 2.5 mg PO BID 02/05/19 12/04/23 History sulfaSALAzine [Azulfidine] 1,000 mg PO BID 02/05/19 02/10/19 History Flecainide [Tambocor] 50 mg PO Q12HR #180 tablet 02/10/19 12/04/23 Rx Apremilast [Otezla] 30 mg PO BID 12/04/23 12/04/23 History Butalb/APAP/Caff 50-325-40Mg See Rx Instructions .ROUTE 12/04/23 12/04/23 History [Fioricet 50-325-40] .COMPLEX PRN Cholecalciferol (Vitamin D3) 50 mcg PO HS 12/04/23 12/04/23 History [Vitamin D3 (50 Mcg = 2000 Iu)] Denosumab [Prolia] See Rx Instructions .ROUTE .COMPLEX 12/04/23 12/04/23 History Fremanezumab-Vfrm [Ajovy See Rx Instructions .ROUTE .COMPLEX 12/04/23 12/04/23 History Autoinjector] Gabapentin [Neurontin] 100 mg PO DIRECTED 12/04/23 12/04/23 History Hydrocortisone Cream See Rx Instructions .ROUTE .COMPLEX 12/04/23 12/04/23 History [Hydrocortisone 2.5% Cream] Hydroxychloroquine Sulfate 200 mg PO BID 12/04/23 12/04/23 History [Plaquenil] Lipase/Protease/Amylase [Creon Dr 10 mg PO DIRECTED 12/04/23 12/04/23 History 24,000 Unit Capsule] Metoprolol Tartrate [Lopressor] 25 mg PO DIRECTED PRN MDD 25 12/04/23 12/04/23 History NIFEdipine XL [Procardia XL] 60 mg PO DAILY 12/04/23 12/04/23 History Ondansetron [Zofran] 4 mg PO BID 12/04/23 12/04/23 History Rosuvastatin [Crestor] 10 mg PO HS 12/04/23 12/04/23 History Ubidecarenone [Co Q-10] 50 mg PO HS 12/04/23 12/04/23 History traMADol HCl [Ultram] 50 mg PO BID MDD 50 MG 12/04/23 12/04/23 History
== END ==
LOC: 3 N SLEEP 10:55
PROVIDERS: ATTEND Internal Medicine
DX: G47.33 Obstructive sleep apnea (adult) (pediatric) (principal); G47.419 Narcolepsy without cataplexy; J45.909 Unspecified asthma, uncomplicated; Z87.891 Personal history of nicotine dependence; Z86.79 Personal history of other diseases of the circulatory system; Z86.69 Personal history of other diseases of the nervous system and sense organs; Z85.89 Personal history of malignant neoplasm of other organs and systems; Z87.2 Personal history of diseases of the skin and subcutaneous tissue; Z87.39 Personal history of other diseases of the musculoskeletal system and connective tissue; Z87.09 Personal history of other diseases of the respiratory system; Z91.09 Other allergy status, other than to drugs and biological substances; Z87.448 Personal history of other diseases of urinary system
CPT/HCPCS: 99212